=== PATIENT | male | born 1965 | race Caucasian/White ===

== ENCOUNTER 2017-07-17 19:11 | Emergency (ER) | payer SELFPAY ==
--- NOTE | 2017-07-17 19:31 | EDM.PDOC ---
ED HPI GENERAL MEDICAL PROBLEM - General Chief Complaint: Respiratory Problem Stated Complaint: RESPIRATORY Time Seen by Provider: 07/17/17 19:31 Source of Information: Reports: Patient History Limitations: Reports: No Limitations - History of Present Illness INITIAL COMMENTS - FREE TEXT/NARRATIVE: pt arrived with sob and a history of colored sputum. He has had increased sob and massive weight loss. Maybe 40 lbs. Onset: Gradual, Other ( Pt was seen at the clinic Jun 10 and was placed on antibiotics at that time. ) Duration: Day(s):, Getting Worse Location: Reports: Chest Associated Symptoms: Reports: Chest Pain, Cough, Fever/Chills, Loss of Appetite , Other ( weight loss) - Related Data Allergies Allergy/AdvReac Type Severity Reaction Status Date / Time No Known Allergies Allergy Verified 07/17/17 19:25 Home Meds: Home Meds Naproxen 250 mg PO ASDIRECTED 07/17/17 [History] Pseudoephedrine HCl [Sudafed] 30 mg PO ASDIRECTED 07/17/17 [History] Past Medical History HEENT History: Reports: Impaired Vision Musculoskeletal History: Reports: Fracture - Infectious Disease History Infectious Disease History: Reports: Chicken Pox - Past Surgical History GI Surgical History: Reports: Appendectomy ED ROS GENERAL - Review of Systems Review Of Systems: See Below Constitutional: Reports: Fever, Chills, Malaise, Weakness, Decreased Appetite, Weight Loss HEENT: Reports: Other ( dry mouth. Not getting fluids in. ) Respiratory: Reports: Shortness of Breath, Cough, Sputum Cardiovascular: Reports: Palpitations Endocrine: Reports: No Symptoms GI/Abdominal: Reports: Decreased Appetite, Other ( weight loss) : Reports: No Symptoms Musculoskeletal: Reports: No Symptoms Skin: Reports: No Symptoms Neurological: Reports: No Symptoms Psychiatric: Reports: Depression ED EXAM, GENERAL - Physical Exam Exam: See Below Free Text/Narrative:: Pt is a healthy person who has been ill for about 1 month. He has a 40 lb wt loss. Exam Limited By: No Limitations General Appearance: Alert, Severe Distress, Thin, Other (pupils equal and reactive. ) Ears: Normal TMs Nose: Normal Inspection Throat/Mouth: Normal Inspection, Other ( very dry and crusty. ) Head: Atraumatic Neck: Normal Inspection Respiratory/Chest: Other (pt has very few breath sounds on the rt side. ) Cardiovascular: Regular Rate, Rhythm GI/Abdominal: Soft, Non-Tender (Male) Exam: Deferred Rectal (Males) Exam: Deferred Back Exam: Normal Inspection Extremities: Pedal Edema, Other ( Pt has plus 2 pitting edema. ) Neurological: Alert, Oriented, Normal Cognition Psychiatric: Depressed Mood Course - Vital Signs Last Recorded V/S: Last Vital Signs Temp 36.2 C 07/17/17 19:37 Pulse 110 H 07/17/17 22:55 Resp 27 H 07/17/17 22:55 BP 100/52 L 07/17/17 22:55 Pulse Ox 96 07/17/17 22:55 - Orders/Labs/Meds Labs: Laboratory Tests 07/17/17 07/17/17 07/17/17 Range/Units 19:29 19:29 19:29 WBC 35.9 H* (4.5-11.0) K/uL RBC 3.25 L (4.30-5.90) M/uL Hgb 9.7 L (12.0-15.0) g/dL Hct 30.7 L (40.0-54.0) % MCV 95 (80-98) fL MCH 30 (27-31) pg MCHC 32 (32-36) % Plt Count 596 H (150-400) K/uL Add Manual Diff Yes Neutrophils % (Manual) 83 H (36-66) % Band Neutrophils % 5 (5-11) % Lymphocytes % (Manual) 7 L (24-44) % Monocytes % (Manual) 5 (2-6) % Puncture Site ABG pH (7.350-7.450) ABG pCO2 (35.0-42.0) mmHg ABG pO2 (75.0-100.0) mmHg ABG HCO3 (22.0-26.0) mmol/L ABG Total CO2 (23.0-27.0) mmol/L ABG O2 Saturation (95.0-98.0) % ABG O2 Content (15.0-23.0) %vol ABG Base Excess mm/L ABG Hemoglobin (13.5-18.0) g/dL ABG Oxyhemoglobin % ABG Carboxyhemoglobin (0.0-1.6) % ABG Methemoglobin % Jamie Test O2 Delivery Device Oxygen Flow Rate L Sodium 131 L (140-148) mmol/L Potassium 2.7 L* (3.6-5.2) mmol/L Chloride 89 L (100-108) mmol/L Carbon Dioxide 35 H (21-32) mmol/L Anion Gap 9.7 (5.0-14.0) mmol/L BUN 14 (7-18) mg/dL Creatinine 1.2 (0.8-1.3) mg/dL Est Cr Clr Drug Dosing 78.14 mL/min Estimated GFR (MDRD) > 60 (>60) Glucose 157 H (74-106) mg/dL Lactic Acid (0.4-2.0) mmol/L Calcium 8.2 L (8.5-10.1) mg/dL Total Bilirubin 0.5 (0.2-1.0) mg/dL AST 16 (15-37) U/L ALT 16 (12-78) U/L Alkaline Phosphatase 564 H (46-116) U/L C-Reactive Protein (0.0-0.3) mg/dL NT-Pro-B Natriuret Pep 345 H (5-125) pg/mL Total Protein 5.8 L (6.4-8.2) g/dL Albumin 1.1 L (3.4-5.0) g/dL Globulin 4.7 H (2.3-3.5) g/dL Albumin/Globulin Ratio 0.2 L (1.2-2.2) 07/17/17 07/17/17 07/17/17 Range/Units 19:29 19:30 20:02 WBC (4.5-11.0) K/uL RBC (4.30-5.90) M/uL Hgb (12.0-15.0) g/dL Hct (40.0-54.0) % MCV (80-98) fL MCH (27-31) pg MCHC (32-36) % Plt Count (150-400) K/uL Add Manual Diff Neutrophils % (Manual) (36-66) % Band Neutrophils % (5-11) % Lymphocytes % (Manual) (24-44) % Monocytes % (Manual) (2-6) % Puncture Site Rt radial ABG pH 7.495 H (7.350-7.450) ABG pCO2 44.3 H (35.0-42.0) mmHg ABG pO2 68.3 L (75.0-100.0) mmHg ABG HCO3 33.8 H (22.0-26.0) mmol/L ABG Total CO2 31.0 H (23.0-27.0) mmol/L ABG O2 Saturation 92.2 L (95.0-98.0) % ABG O2 Content 12.4 L (15.0-23.0) %vol ABG Base Excess 9.7 mm/L ABG Hemoglobin 9.7 L (13.5-18.0) g/dL ABG Oxyhemoglobin 89.9 % ABG Carboxyhemoglobin 1.3 (0.0-1.6) % ABG Methemoglobin 1.2 % Jamie Test Passed O2 Delivery Device Nasal cannula Oxygen Flow Rate 5 L Sodium (140-148) mmol/L Potassium (3.6-5.2) mmol/L Chloride (100-108) mmol/L Carbon Dioxide (21-32) mmol/L Anion Gap (5.0-14.0) mmol/L BUN (7-18) mg/dL Creatinine (0.8-1.3) mg/dL Est Cr Clr Drug Dosing mL/min Estimated GFR (MDRD) (>60) Glucose (74-106) mg/dL Lactic Acid 4.7 H (0.4-2.0) mmol/L Calcium (8.5-10.1) mg/dL Total Bilirubin (0.2-1.0) mg/dL AST (15-37) U/L ALT (12-78) U/L Alkaline Phosphatase (46-116) U/L C-Reactive Protein 43.73 H (0.0-0.3) mg/dL NT-Pro-B Natriuret Pep (5-125) pg/mL Total Protein (6.4-8.2) g/dL Albumin (3.4-5.0) g/dL Globulin (2.3-3.5) g/dL Albumin/Globulin Ratio (1.2-2.2) Meds: Medications Discontinued Medications Generic Name Dose Route Start Last Admin Trade Name Freq PRN Reason Stop Dose Admin Sodium Chloride 1,000 mls @ 999 mls/hr 07/17/17 19:45 07/17/17 20:17 Normal Saline IV 999 mls/hr ASDIRECTED SERGE Administration Potassium Chloride 40 meq/ 100 mls @ 25 mls/hr 07/17/17 20:33 07/17/17 21:09 Premix IV 07/18/17 00:32 Not Given ONETIME ONE Sodium Chloride 1,000 mls @ 500 mls/hr 07/17/17 20:45 07/17/17 20:59 Normal Saline IV 500 mls/hr ASDIRECTED SERGE Administration Levofloxacin/Dextrose 500 mg/ 100 mls @ 100 mls/hr 07/17/17 20:36 07/17/17 20 :59 Premix IV 07/17/17 21:35 100 mls/hr ONETIME ONE Administration Potassium Chloride Confirm 07/17/17 20:47 07/17/17 20:58 Kcl 20 Meq In Water 100 Ml Administered 07/17/17 20:48 Not Given Dose 100 mls @ as directed .ROUTE .STK-MED ONE Potassium Chloride 20 meq/ 100 mls @ 50 mls/hr 07/17/17 20:50 07/17/17 20:58 Premix IV 07/17/17 22:49 50 mls/hr ONETIME ONE Administration Piperacillin Sod/Tazobactam 50 mls @ 100 mls/hr 07/17/17 22:00 07/17/17 23:27 Sod 3.375 gm/ Sodium Chloride IV 100 mls/hr Q6H SERGE Administration Lidocaine HCl Confirm 07/17/17 20:47 07/17/17 21:11 Xylocaine-Mpf 1% Administered 07/17/17 20:48 5 ml Dose Administration 5 ml .ROUTE .STK-MED ONE - Re-Assessments/Exams Free Text/Narrative Re-Assessment/Exam: 07/17/17 21:01 chest xray showed a white out on the rt side on chest xray. A lung scan was obtained . his wbc is 35,000. His k was 2.7. He has a crp greater than 43. He is on 4 liters and maintaining at this time. Departure - Departure Time of Disposition: 21:14 Disposition: DC/Tfer to Acute Hospital 02 Condition: Fair Clinical Impression: Pneumonia, Dehydration, Sepsis, Hypokalemia, Lung abscess - Discharge Information Referrals: PCP,None [Primary Care Provider] - Forms: ED Department Discharge Care Plan Goals: Transfer to [facility]. cpap, run Iv at 400cc.
[2017-07-17] MEDS ORDERED: Sodium Chloride 0.9% 1,000 ML IV SCH ×2 (19:45→20:45)
[2017-07-17] MEDS ORDERED: Potassium Chloride 40 MEQ in Premix Bag 1 BAG IV ONE (20:33)
[2017-07-17] MEDS ORDERED: Levofloxacin/Dextrose 5%-Water 500 MG in Premix Bag 1 BAG IV ONE (20:36)
[2017-07-17] MEDS ORDERED: Potassium Chloride 100 ML ONE (20:47)
[2017-07-17] MEDS ORDERED: Potassium Chloride 20 MEQ in Premix Bag 1 BAG IV ONE (20:50)
[2017-07-17] MEDS ORDERED: Piperacillin/Tazobactam 3.375 GM in Sodium Chloride 0.9% 50 ML IV SCH (22:00)
--- NOTE | 2017-07-21 10:45 | CR ---
Mild cardiomegaly. Left lung is clear. Diffuse airspace disease throughout the right lung.
== END 2017-07-18 ==
LOC: JP.ED 19:11
DX: A41.9 Sepsis, unspecified organism (principal); J85.1 Abscess of lung with pneumonia; E87.6 Hypokalemia; E86.0 Dehydration
CPT/HCPCS: 36415; 36600; 71045; 71250; 80053; 82803; 83605; 83880; 85025; 86140; 87040; 87070; 87077; 87205; 87804; 94660; J1956; J2543; J3480; J7040; J7050